=== PATIENT | male | born 1970 | race Caucasian/White ===

== ENCOUNTER → 2018-03-27 | Outpatient (CLI) | payer BC ==
--- NOTE | 2018-03-27 17:36 | CT ---
EXAMINATION TYPE: CT chest abdomen wo con DATE OF EXAM: 03/27/2018 COMPARISON: None HISTORY: Left upper posterior rib and thoracic spine pain after fall x5 days ago. CT DLP: 955.1 mGycm Automated exposure control for dose reduction was used. FINDINGS: The lungs are clear of infiltrate. There is no evidence of pleural effusion or pneumothorax. Heart si ze is normal. There is no pericardial effusion. I see no mediastinal adenopathy. There is small hiatal hernia. The remainder of the stomach appears normal. There are no hilar masses. Liver spleen pancreas gallbladder appear normal. Bile ducts are not dilated. There is no adrenal mass . Kidneys show normal size and contour. There is no hydronephrosis. There is no retroperitoneal adeno randy. I see no intestinal wall thickening. There is no free fluid. There is no sign of pneumoperiton eum. There is no evidence of thoracic or lumbar compression fracture. Visualized pelvis appears intac t. I see no displaced rib fracture. The visualized shoulders appear intact. Abdominal and thoracic so ft tissues are unremarkable. IMPRESSION: NO EVIDENCE OF TRAUMATIC INJURY IN THE CHEST AND ABDOMEN. NO FRACTURE SEEN.
== END | disposition home or self-care (01) ==
LOC: RADCTMAIN 17:09
PROVIDERS: ATTEND Nurse Practitioner Family
DX: M54.6 Pain in thoracic spine (principal)
CPT/HCPCS: 71250; 74150

== ENCOUNTER → 2021-08-24 | Outpatient (CLI) | payer BC ==
--- NOTE | 2021-08-25 07:43 | CT ---
EXAMINATION TYPE: CT abdomen pelvis w con DATE OF EXAM: 08/24/2021 COMPARISON: CT abdomen March 27, 2018 HISTORY: lower abd pain x5 months CT DLP: 932.1 mGycm, Automated Exposure Control for Dose Reduction was Utilized. CONTRAST: CT scan of the abdomen and pelvis is performed with oral and with IV Contrast, patient injected with 100 mL of Isovue 300. FINDINGS: LUNG BASES: No significant abnormality is appreciated. LIVER/GB: No significant abnormality is appreciated. PANCREAS: No significant abnormality is seen. SPLEEN: No significant abnormality is seen. ADRENALS: No significant abnormality is seen. KIDNEYS: Symmetric uptake and excretion without hydronephrosis seen bilaterally. Bladder is not great ly distended with mild wall thickening. Cannot exclude acute cystitis in appropriate clinical setting . Correlate clinically. BOWEL: Oral contrast has not reached level of the terminal ileum making evaluation of distal bowel sl ightly suboptimal. Normal-appearing appendix is seen from cecum. There is small bowel feces sign. The re is no suspicious small bowel dilatation to suggest obstruction. Findings consistent with delayed p assage of ingested material to colonic level. Slightly redundant sigmoid colon. Occasional distal col onic diverticula. No CT evidence for acute diverticulitis. Mild fecal prominence throughout the colon particularly the right and transverse colon. PROSTATE/SEMINAL VESICLES: Prostate gland measures upper limits of normal in size. LYMPH NODES: No greater than 1cm abdominal or pelvic lymph nodes are appreciated. OSSEOUS STRUCTURES: Posterior disc herniation L2-L3 level effaces anterior thecal sac sagittal image 66. Mild facet arthropathy lower lumbar levels. OTHER: No significant additional abnormality is seen. IMPRESSION: Mild wall thickening of the urinary bladder. Correlate clinically to exclude acute cystit is. Mild colonic fecal stasis. No bowel obstruction.
== END | disposition home or self-care (01) ==
LOC: RADCTMAIN 17:18
PROVIDERS: ATTEND Family Medicine
DX: N32.89 Other specified disorders of bladder (principal); K59.89 Other specified functional intestinal disorders
CPT/HCPCS: 74177; Q9967